=== PATIENT | female | born 1960 | race Caucasian/White ===

== ENCOUNTER 2020-03-16 18:31 | Emergency (ER) | payer OTHER, SELFPAY ==
[2020-03-16 18:36] VITALS: BP 116/72; PULSE 99; RESP 18; TEMP 36.6; O2SAT 99
[2020-03-16 18:49] VITALS: BP 117/68; PULSE 80; RESP 18
--- NOTE | 2020-03-16 19:42 | ED.ALLEREA ---
HPI - Allergic Reaction General Chief complaint: Allergic Reaction Stated complaint: bee sting Time Seen by Provider: 03/16/20 19:06 History of Present Illness HPI narrative: Stung on the left elbow by a wasp around 3 PM. Noted local swelling around the sting and diffuse rash. This was followed by a sensation of swelling in the lips and throat with mild SOB. She took 50 mg bendryl. At this time she feels her symptoms have significantly improved. She continues to have diffuse itching, but is otherwise feeling well. No previous serious allergic reactions. Related Data Allergies Allergy/AdvReac Type Severity Reaction Status Date / Time No Known Allergies Allergy Unknown Unverified 11/22/07 11:25 Review of Systems Review of Systems: All systems reviewed & are unremarkable except as noted in HPI and below Constitutional: Constitutional: Denies fever(s) Cardiovascular: Cardiovascular: Denies chest pain Respiratory: Respiratory: Reports dyspnea Gastrointestinal: Gastrointestinal: Denies abdominal pain, Denies nausea and Denies vomiting Integumentary/Breasts: Skin/Breast: Reports rash Neurologic: Denies dizziness, Denies numbness and Denies weakness Allergic/Immunologic: Allergic/Immunologic: Reports lip swelling and Reports throat swelling PMFSH Social History Social History Smoking status: Never smoker Alcohol intake: never Exam Const: General: healthy appearing, no acute distress and alert Nutritional Appearance: well nourished Orientation/consciousness: patient oriented x3 HENMT: Head: normal to inspection Chest: Chest palpation & inspection: normal inspection of the chest Resp: Effort & Inspection: normal respiratory effort Auscultation: clear to auscultation bilaterally Cardio: Rate: regular rate Rhythm: regular rhythm GI: GI Palp: Yes Soft to palpation and No Tenderness to palpation present (GI) Other: macular rash accross abdomen Skin: Other: Red mildly raised lesion to left elbow Neuro: General: patient oriented x3, moves all extremities, no focal motor deficits and CN's II-XI intact bilaterally Speech: normal speech Gait exam (Neuro): Normal gait present Course Vital Signs Vital signs: Vital Signs Temperature 36.6 C 03/16/20 18:36 Pulse Rate 99 03/16/20 18:36 Respiratory Rate 18 03/16/20 18:36 Blood Pressure 116/72 03/16/20 18:36 Pulse Oximetry 99 03/16/20 18:36 Temperature 36.6 C 03/16/20 18:36 Pulse Rate 80 03/16/20 18:49 Respiratory Rate 18 03/16/20 18:49 Blood Pressure 117/68 03/16/20 18:49 Pulse Oximetry 99 03/16/20 18:36 MDM - Allergic Reaction MDM Narrative Medical decision making narrative: Allergic reaction. Improving. No severe or life threatening features on my evaluation. I will prescribe a short course of prednisone for remaining symptoms. Medical Records Attestation: I reviewed the patient's medical records. Discharge Plan Discharge Clinical Impression: Allergic reaction to insect sting Qualifiers: Encounter type: initial encounter Injury intent: accidental or unintentional Qualified Code(s): T63.481A - Toxic effect of venom of other arthropod, accidental (unintentional), initial encounter Patient Disposition: Home, Self-Care Condition: Stable Instructions: Insect Bite or Sting (ED) Prescriptions: New prednisone 20 mg tablet 40 mg PO DAILY 3 Days Qty: 6 RF: 0 Follow-up/Referrals: Jeff,HUNG Santamaria [Primary Care Provider] -
[2020-03-16] MEDS: predniSONE 20 MG TABLET 40 MG PO (19:46)
== END 2020-03-16 20:05 | disposition home or self-care (01) ==
PROVIDERS: Emergency Provider Emergency Medicine; PCP Physician Assistant
DX: T63.461A Toxic effect of venom of wasps, accidental (unintentional), initial encounter (principal)
CPT/HCPCS: 99283; J7512

== ENCOUNTER 2021-04-02 11:44 | Emergency (ER) | payer OTHER, SELFPAY ==
--- NOTE | ~2021-04-02 | XR_ITS ---
EXAMINATION: XR lumbar spine min 4V DATE: 04/02/2021 13:41 INDICATION: Low back pain. TECHNIQUE: 5 views of lumbar spine were obtained. COMPARISON: None. FINDINGS: There are chronic bilateral L5 pars defects. There is 9 mm anterolisthesis of L5 on S1. The re is mild chronic height loss of L5 vertebral body posteriorly. There is 13 degrees dextroscoliosis of thoracolumbar spine. There is severely decreased disc height at T12-L1 and L5-S1 with endplate rem odeling. There is multilevel facet joint osteoarthritis, severe bilaterally at L4-L5. IMPRESSION: 1. Severe lumbar spondylosis. 2. Chronic bilateral L5 pars defects with grade 2 anterolisthesis of L5 on S1. 3. Thoracolumbar dextroscoliosis. Reviewed, dictated and finalized at location A.
[2021-04-02 12:01] VITALS: BP 130/81; PULSE 82; RESP 16; TEMP 36.7; O2SAT 96
[2021-04-02] MEDS: KETOROLAC 30 MG/ML VIAL (*BKC) IM (13:23)
--- NOTE | 2021-04-02 13:56 | ED.BACK ---
HPI - Back Pain/Injury General Chief Complaint: Back Pain/Injury Stated Complaint: back pain Time Seen by Provider: 04/02/21 12:03 Source: patient Mode of arrival: ambulatory Limitations: no limitations History of Present Illness HPI Narrative: 60-year-old with no major medical problems here with complaints of low back pain for past several months. She states that she got injured while she was at work. She was hit on the left side of her body by a forklift and she fell on the right side and ever since then she has been having pain. Patient states that she had x-rays of her elbow and her back which were all normal. However since last 2 days she states the pain is more intense on the right side radiating into upper part of the thigh. She denies any bladder or bowel incontinence. No recent trauma or lifting any heavy objects. MD elicited complaint: back pain Pertinent past history: prior back pain Onset (ago): month(s) (9) Timing: constant Severity: moderate Similar Symptoms Previously: Yes Quality: burning Location: lumbar spine Radiation: left upper leg Exacerbating factors: none Relieving factors: none Context: fall Associated symptoms: denies other symptoms Related Data Home Medications Medication Instructions Recorded Confirmed omeprazole 04/02/21 Allergies Allergy/AdvReac Type Severity Reaction Status Date / Time No Known Allergies Allergy Unknown Verified 04/02/21 12:44 Review of Systems Review of Systems: All systems reviewed & are unremarkable except as noted in HPI and below Constitutional: Constitutional: Reports no additional constitutional complaints Eyes: Eyes: Reports no additional eye complaints ENT: Reports system reviewed and no additional complaints, except as documented Cardiovascular: Cardiovascular: Reports no additional cardiovascular complaints Respiratory: Respiratory: Reports no additional respiratory complaints Gastrointestinal: Gastrointestinal: Reports no additional gastrointestinal complaints Musculoskeletal: Musculoskeletal: Reports as per HPI Neurologic: Reports system reviewed and no additional complaints, except as documented PMFSH Social History Social History Smoking status: Never smoker Alcohol intake: never Exam Narrative: GENERAL: Well-appearing, well-nourished, and in no acute distress. HEAD: Normocephalic, atraumatic. EYES: PERRLA and EOMI. NECK: Supple. CHEST: Clear to auscultation. No respiratory distress. HEART: Regular rate and rhythm. No murmur heard. Normal peripheral pulses. ABDOMEN: Soft, nontender, nondistended, normal active bowel sounds. EXTREMITIES: Normal range of motion. No edema. Back no vertebral point tenderness. Pain and on the SI area on the right. SLR negative SKIN: Warm, dry, no rash. NEURO: No focal deficits. Alert and oriented x3. PSYCH: Normal mood and affect. Course Course Emergency Course: Her symptoms are suggestive more of radiculopathy as the pain is burning in nature. We will give her Toradol 30 mg IM pain. Vital Signs Vital signs: Vital Signs Temperature 36.7 C 04/02/21 12:01 Pulse Rate 82 04/02/21 12:01 Respiratory Rate 16 04/02/21 12:01 Blood Pressure 130/81 04/02/21 12:01 Pulse Oximetry 96 04/02/21 12:01 Temperature 36.7 C 04/02/21 12:01 Pulse Rate 82 04/02/21 12:01 Respiratory Rate 16 04/02/21 12:01 Blood Pressure 130/81 04/02/21 12:01 Pulse Oximetry 96 04/02/21 12:01 MDM - Back Pain/Injury MDM Narrative Medical decision making narrative: With a history of trauma and an increase in pain in the right lower back lumbar spine x-ray. Differential Diagnosis Differential diagnosis: Likely lumbar radiculopathy, sciatica and discitis Imaging Data Radiologist's impression: ITS Impressions Lumbar Spine X-Ray 04/02/21 13:43 IMPRESSION: 1. Severe lumbar spondylosis. 2. Chronic bilateral L5 pars defects with grade
== END 2021-04-02 14:09 | disposition home or self-care (01) ==
PROVIDERS: Emergency Provider Family Medicine
DX: M47.26 Other spondylosis with radiculopathy, lumbar region (principal)
CPT/HCPCS: 72110; 96372; 99283; J1885

== ENCOUNTER 2023-06-09 08:14 | Emergency (ER) | payer OTHER, SELFPAY ==
--- NOTE | ~2023-06-09 | XR_ITS ---
XR chest 2V DATE: 06/09/2023 09:23 INDICATION: Cough. Smoker. TECHNIQUE: 2 views COMPARISON: 10/12/2006 PA and lateral views FINDINGS: Moderate bilateral hyperinflation. No pulmonary infiltrate or consolidation, pleural effusi on or pulmonary vascular congestion or pneumothorax is detected. Normal heart size. No hilar or mediastinal mass lesion or lymphadenopathy is detected. Diffuse osteopenia. There is apparent loss of height of a thoracolumbar vertebral body, not well-demonstrated on the some what rotated lateral view, but apparently a new finding compared to 10/12/2006. IMPRESSION: Moderate bilateral hyperinflation likely due to obstructive airways disease No active cardiopulmonary disease is noted otherwise Suggestion of moderate loss of height of a thoracolumbar vertebral body, not optimally evaluated on t his examination Reviewed, dictated and finalized at location B. ILE DYER IMPRESSION: Moderate bilateral hyperinflation likely due to obstructive airways disease No active cardiopulmonary disease is noted otherwise Suggestion of moderate loss of height of a thoracolumbar vertebral body, not op timally evaluated on this examination
[2023-06-09 08:47] VITALS: BP 139/78; PULSE 84; RESP 16; TEMP 36.8; O2SAT 98
--- NOTE | 2023-06-09 09:05 | ED.URI ---
HPI - URI/Sore Throat General Chief Complaint: Upper Respiratory Infection Stated Complaint: congestion,sorethroat,bilateral ear discomfort Time Seen by Provider: 06/09/23 09:05 Source: patient, RN notes reviewed and old records reviewed Mode of arrival: ambulatory Limitations: no limitations History of Present Illness HPI Narrative: 62-year-old female presents to the [facility] with complaints of Bodyaches, congestion, sore throat, bilateral ear pain that started 06/02, 6 days. Exposure to RSV Patient has a history pneumonia. Currently a smoker. Has been smoking since 21 years old, half a pack a day Onset (ago): day(s) (6) Related Data Home Medications Medication Instructions Recorded Confirmed omeprazole 40 mg capsule,delayed 40 mg PO DAILY 04/02/21 06/09/23 release Allergies Allergy/AdvReac Type Severity Reaction Status Date / Time No Known Allergies Allergy Unknown Verified 06/09/23 08:32 Review of Systems Review of Systems: All systems reviewed & are unremarkable except as noted in HPI and below Constitutional: Constitutional: Reports no additional constitutional complaints Eyes: Eyes: Reports no additional eye complaints ENT: Reports as per HPI, Reports otalgia (Bilateral) and Reports sore throat Cardiovascular: Cardiovascular: Reports no additional cardiovascular complaints, Denies chest pain and Denies dyspnea Respiratory: Respiratory: Reports as per HPI, Reports chest congestion, Reports cough and Denies dyspnea Gastrointestinal: Gastrointestinal: Reports no additional gastrointestinal complaints, Denies abdominal pain, Denies nausea and Denies vomiting Musculoskeletal: Musculoskeletal: Reports no additional musculoskeletal complaints Integumentary/Breasts: Skin/Breast: Reports system reviewed and no additional complaints, except as docu Neurologic: Reports system reviewed and no additional complaints, except as documented Psychiatric: Psychiatric: Reports no additional psychiatric complaints Allergic/Immunologic: Allergic/Immunologic: Reports no additional allergic/immunologic complaints PMF Past Medical History Medical History (Updated 06/09/23 @ 18:43 by Starla Chang APRN) Chronic GERD HH (hiatus hernia) Postmenopausal Social History Social History (Updated 06/09/23 @ 18:44 by Starla Chang APRN) Smoking packs per day: 0.5 Smoking cigarettes per day: 10.0 Years smoked: 41 Smoking pack-years: 20.50 Smoking status: Current every day smoker Tobacco type: cigarettes Alcohol intake: never Comments At the time of my signature, I reviewed and agree with the nursing past medical, surgical, social, and family history. There is no relevant family history pertinent to the patient complaint. Exam Const: General: cooperative, healthy appearing, comfortable, no acute distress, well developed, alert and well nourished Nutritional Appearance: well nourished Orientation/consciousness: patient oriented x3 Limitations: no limitations HENMT: Head: normal to inspection Ears: hearing grossly normal bilaterally, external ears normal, EAC's normal and TM abnormal wth effusion serous; not serosanguinous; not erythematous and with no loss of landmarks Face/Nose/Sinus: Normal external nose present, Normal nares present, Normal nasal mucous membranes and turbinates present, normal facial exam and face symmetric Face and sinus: normal facial exam and face symmetric Mouth: Yes Normal oral and palatal mucosa present, Yes lip normal and Yes moist mucous membranes Throat: posterior oropharynx normal, uvula midline and postnasal drainage Eyes: General: appearance normal, both eyes and all related structures Alignment and Position: alignment normal Periorbital: periorbital findings normal Pupils: Equal, round and reactive pupils present EOM: EOMs intact bilaterally Neck: Neck: normal visual inspection, full ROM, no lymphadenopathy and no meningeal signs Chest: Chest palpation & insp
== END 2023-06-09 09:48 | disposition home or self-care (01) ==
PROVIDERS: Emergency Provider Nurse Practitioner; PCP Physician Assistant
DX: J44.1 Chronic obstructive pulmonary disease with (acute) exacerbation (principal); M85.80 Other specified disorders of bone density and structure, unspecified site; F17.210 Nicotine dependence, cigarettes, uncomplicated; Z20.822 Contact with and (suspected) exposure to COVID-19
CPT/HCPCS: 71046; 87081; 87426; 87804; 87880; 99213; C9803; G0463